=== PATIENT | male | born 1980 | race Two or more races ===

== ENCOUNTER 2022-04-23 08:19 | Emergency (ER) | payer BC ==
[2022-04-23] MEDS ORDERED: Sodium Chloride 0.9% 1,000 ML IV ONE (08:55)
[2022-04-23] MEDS ORDERED: Ondansetron 4 MG/2 ML SDV IVPUSH ONE (08:55)
== END 2022-04-23 10:34 | disposition home or self-care (01) ==
LOC: JP.ED 08:19
DX: R11.2 Nausea with vomiting, unspecified (principal); Z91.013 Allergy to seafood
CPT/HCPCS: 96361; 96374; 96375; 99283; J1790; J2405; J7030